=== PATIENT | female | born 1955 | race Caucasian/White ===

== ENCOUNTER → 2020-07-22 | Outpatient (CLI) | payer SELFPAY ==
[2020-07-22 13:42] LABS: ALBUMIN 4.2 g/dL (3.2-5.5); ALBUMIN/GLOBULIN RATIO 1.6 (1.0-2.2); CALCIUM 9.8 mg/dL (8.5-10.3); CREATININE 0.8 mg/dL (0.4-1.0); TOTAL PROTEIN 6.8 g/dL (6.7-8.2)
== END ==
LOC: LAB.R 08:00
PROVIDERS: ATTEND Physician Assistant Medical
DX: Z51.81 Encounter for therapeutic drug level monitoring (principal); Z79.899 Other long term (current) drug therapy
CPT/HCPCS: 36415; 80053

== ENCOUNTER 2021-05-21 07:00 | Outpatient (CLI) | payer OTHER | END 2021-05-21 23:59 | disposition home or self-care (01) | LOC: LAB.R 07:00 | PROVIDERS: ATTEND Physician Assistant Medical | DX: R30.0 Dysuria (principal) | CPT/HCPCS: 87086 ==

== ENCOUNTER 2022-04-09 08:00 | Outpatient (CLI) | payer MEDICARE, OTHER | END 2022-04-09 23:59 | disposition home or self-care (01) | LOC: LAB.S 08:00 | PROVIDERS: ATTEND Physician Assistant | DX: R10.9 Unspecified abdominal pain (principal) | CPT/HCPCS: 87086 ==

== ENCOUNTER 2022-04-09 18:34 | Emergency (ER) | payer MEDICARE, OTHER ==
--- OUTSIDE RECORDS SUMMARY | 2022-04-09 19:23 | EXTERNAL MEDICAL SUMMARY RPT | Continuity of Care Document ---
:1955 Author Organization [facility] Address [address] [place] [address] Phone Care Team Providers Name Role Phone Doug MAHMOOD Unavailable Unavailable Registrar, Kaitlin Layneborne Patient Unavailable Un available Allergies No information. Encounters No information. Medications No information. Problems date description facility 20220409 Urine C[facility] 20220409 Unspecified abdominal pain [facility] 20220409 Left flank pain [facility] 20220409 Abdominal pain, other specified site; [facility] sites [facility] Results test status date ordered by attending specimen jerzy e Urobilinogen_Presence_ unknown 20220409 unknown unknown unknown in_Urine_by_Test_strip Specific_gravity_of_Ur unknown 20220409 unknown unknown unknown ine_by_Test_strip pH_of_Urine_by_Test_st unknown 20220409 unknown unknown unknown rip Nitrite_Presence_in_Ur unknown 20220409 unknown unknown unknown ine_by_Test_strip Leukocyte_esterase_Pre unknown 20220409 unknown unknown unknown sence_in_Urine_by_Test_ strip Ketones_Mass_volume_in unknown 20220409 unknown unknown unknown _Urine_by_Test_strip Glucose_Mass_volume_in unknown 20220409 unknown unknown unknown _Urine_by_Test_strip Color_of_Urine unknown 20220409 unknown unknown unknown Bilirubin.total_Presen unknown 20220409 unknown unknown unknown ce_in_Urine_by_Test_str ip Appearance_of_Urine unknown 20220409 unknown unknown unk nown culture_status unknown 20220409 unknown unknown unknown urinalysis_routine unknown 20220409 unknown unknown unkn own appearance_urine unknown 20220409 unknown unknown unknow n leukocyte_esterase_uri unknown 20220409 unknown unknown unknown ne_by_dipstick urobilinogen_urine_sem unknown 20220409 unknown unknown unknown iquantitative_dipstick_ specific_gravity_urine unknown 20220409 unknown unknown unknown pH_urine_semiquantitat unknown 20220409 unknown unknown unknown arpit nitrite_urine_semiquan unknown 20220409 unknown unknown unknown titative ketones_urine_by_test_ unknown 20220409 unknown unknown unknown strip bilirubin_urine unknown 20220409 unknown unknown unknown urine_color unknown 20220409 unknown unknown unknown Albumin_Presence_in_Ur unknown 20220409 unknown unknown unknown ine RBC_urine_dipstick unknown 20220409 unknown unknown unkn own Erythrocytes_area_in_U unknown 20220409 unknown unknown unknown rine_sediment_by_Micros copy_high_power_field glucose_urine_semiquan unknown 20220409 unknown unknown unknown titative protein_urine_semiquan unknown 20220409 unknown unknown unknown titative_dipstick_ DIPSTICK_URINE_STRIP_L unknown 20220409 unknown unknown unknown OT_NUMBER Urobilinogen_Presence_ unknown 20220409 unknown unknown unknown in_Urine_by_Test_strip Specific_gravity_of_Ur unknown 20220409 unknown unknown unknown ine_by_Test_strip pH_of_Urine_by_Test_st unknown 20220409 unknown unknown unknown rip Nitrite_Presence_in_Ur unknown 20220409 unknown unknown unknown ine_by_Test_strip Leukocyte_esterase_Pre unknown 20220409 unknown unknown unknown sence_in_Urine_by_Test_ strip Ketones_Mass_volume_in unknown 20220409 unknown unknown unknown _Urine_by_Test_strip Glucose_Mass_volume_in unknown 20220409 unknown unknown unknown _Urine_by_Test_strip Color_of_Urine unknown 20220409 unknown unknown unknown Bilirubin.total_Presen unknown 20220409 unknown unknown unknown ce_in_Urine_by_Test_str ip Appearance_of_Urine unknown 20220409 unknown unknown unk nown culture_status unknown 20220409 unknown unknown unknown urinalysis_routine unknown 20220409 unknown unknown unkn own appearance_urine unknown 20220409 unknown unknown unknow n leukocyte_esterase_uri unknown 20220409 unknown unknown unknown ne_by_dipstick urobilinogen_urine_sem unknown 20220409 unknown unknown unknown iquantitative_dipstick_ specific_gravity_urine unknown 20220409 unknown unknown unknown pH_urine_semiquantitat unknown 20220409 unknown unknown unknown arpit nitrite_urine_semiquan unknown 20220409 unknown unknown unknown titative ketones_urine_by_test_ unknown 20220409 unknown unknown unknown strip bilirubin_urine unknown 20220409 unknown unknown unknown urine_color unknown 20220409 unknown unknown unknown Albumin_Presence_in_Ur unknown 20220409 unknown unknown unknown ine RBC_urine_dipstick unknown 20220409 unknown unknown unkn own Erythrocytes_area_in_U unknown 20220409 unknown unknown unknown rine_sediment_by_Micros copy_high_power_field glucose_urine_semiquan unknown 20220409 unknown unknown unknown titative protein_urine_semiquan unknown 20220409 unknown unknown unknown titative_dipstick_ DIPSTICK_URINE_STRIP_L unknown 20220409 unknown unknown unknown OT_NUMBER facility observation status value reference units lab abnor mal line range code notes Walk-In Urobilinogen unknown negative unknown _5818 unkn own unknown Clinic _Presence_in_ -0 Primary Urine_by_Test Care & _strip [facility] Specific_gra unknown 1.020 unknown _5811 unknow n unknown Clinic vity_of_Urine -5 Primary _by_Test_stri Care & p [facility] pH_of_Urine_ unknown 5.5 unknown _5803 unknow n unknown Clinic by_Test_strip -2 [facility] Nitrite_Pres unknown negative unknown _5802 unkn own unknown Clinic ence_in_Urine -4 Primary _by_Test_stri Care & p [facility] Leukocyte_es unknown 2+ unknown _5799 unknow n unknown Clinic terase_Presen -2 Primary ce_in_Urine_b Care & y_Test_strip [facility] Ketones_Mass unknown negative unknown _5797 unkn own unknown Clinic _volume_in_Ur -6 Primary ine_by_Test_s Care & trip [facility] Glucose_Mass unknown negative unknown _5792 unkn own unknown Clinic _volume_in_Ur -7 Primary ine_by_Test_s Care & trip [facility] Color_of_Uri unknown yellow unknown _5778 unknow n unknown Clinic ne -6 [facility] Bilirubin.to unknown negative unknown _5770 unkn own unknown Clinic tal_Presence_ -3 Primary in_Urine_by_T Care & est_strip [facility] Appearance_o unknown clear unknown _5767 unknow n unknown Clinic f_Urine -9 [facility] culture_stat unknown Yes unknown _5101 unknow n unknown Clinic us 5 [facility] urinalysis_r unknown Clean unknown _47 unknow n unknown Clinic outine Catch [facility] appearance_u unknown clear unknown _328 unknow n unknown Clinic rine [facility] leukocyte_es unknown 2+ unknown _327 unknow n unknown Clinic terase_urine_ Primary by_dipstick Care & [facility] urobilinogen unknown negative unknown _326 unkn own unknown Clinic _urine_semiqu Primary antitative_di Care & pstick_ [facility] specific_gra unknown 1.020 unknown _325 unknow n unknown Clinic vity_urine [facility] pH_urine_sem unknown 5.5 unknown _324 unknow n unknown Clinic iquantitative [facility] nitrite_urin unknown negative unknown _323 unkn own unknown Clinic e_semiquantit Primary ative [facility] ketones_urin unknown negative unknown _322 unkn own unknown Clinic e_by_test_str Primary ip [facility] bilirubin_ur unknown negative unknown _319 unkn own unknown Clinic ine [facility] urine_color unknown yellow unknown _2751 unknown unknown Clinic [facility] Albumin_Pres unknown negative unknown _1753 unkn own unknown Clinic ence_in_Urine -3 [facility] RBC_urine_di unknown 3+ unknown _1700 unknow n unknown Clinic pstick 005 [facility] Erythrocytes unknown 3+ unknown _1394 unknow n unknown Clinic _area_in_Urin 5-1 Primary e_sediment_by Care & _Microscopy_h Ancillary igh_power_fie Services ld [facility] glucose_urin unknown negative unknown _123 unkn own unknown Clinic e_semiquantit Primary ative [facility] protein_urin unknown negative unknown _118 unkn own unknown Clinic e_semiquantit Primary ative_dipstic Care & k_ [facility] DIPSTICK_URI unknown 70944 unknown _1014 unknow n unknown Clinic NE_STRIP_LOT_ 00 Primary NUMBER [facility] & [facility] Urobilinogen unknown negative unknown _5818 unkn own unknown Clinic _Presence_in_ -0 Primary Urine_by_Test Care & _strip [facility] Specific_gra unknown 1.020 unknown _5811 unknow n unknown Clinic vity_of_Urine -5 Primary _by_Test_stri Care & p [facility] pH_of_Urine_ unknown 5.5 unknown _5803 unknow n unknown Clinic by_Test_strip -2 [facility] Nitrite_Pres unknown negative unknown _5802 unkn own unknown Clinic ence_in_Urine -4 Primary _by_Test_stri Care & p [facility] Leukocyte_es unknown 2+ unknown _5799 unknow n unknown Clinic terase_Presen -2 Primary ce_in_Urine_b Care & y_Test_strip [facility] Ketones_Mass unknown negative unknown _5797 unkn own unknown Clinic _volume_in_Ur -6 Primary ine_by_Test_s Care & trip [facility] Glucose_Mass unknown negative unknown _5792 unkn own unknown Clinic _volume_in_Ur -7 Primary ine_by_Test_s Care & trip [facility] Color_of_Uri unknown yellow unknown _5778 unknow n unknown Clinic ne -6 [facility] Bilirubin.to unknown negative unknown _5770 unkn own unknown Clinic tal_Presence_ -3 Primary in_Urine_by_T Care & est_strip [facility] Appearance_o unknown clear unknown _5767 unknow n unknown Clinic f_Urine -9 [facility] culture_stat unknown Yes unknown _5101 unknow n unknown Clinic us 5 [facility] urinalysis_r unknown Clean unknown _47 unknow n unknown Clinic outine Catch [facility] appearance_u unknown clear unknown _328 unknow n unknown Clinic rine [facility] leukocyte_es unknown 2+ unknown _327 unknow n unknown Clinic terase_urine_ Primary by_dipstick Care & [facility] urobilinogen unknown negative unknown _326 unkn own unknown Clinic _urine_semiqu Primary antitative_di Care & pstick_ Anc[facility] specific_gra unknown 1.020 unknown _325 unknow n unknown Clinic vity_urine [facility] pH_urine_sem unknown 5.5 unknown _324 unknow n unknown Clinic iquantitative [facility] nitrite_urin unknown negative unknown _323 unkn own unknown Clinic e_semiquantit Primary ative [facility] ketones_urin unknown negative unknown _322 unkn own unknown Clinic e_by_test_str Primary ip [facility] bilirubin_ur unknown negative unknown _319 unkn own unknown Clinic ine [facility] urine_color unknown yellow unknown _2751 unknown unknown Clinic [facility] Albumin_Pres unknown negative unknown _1753 unkn own unknown Clinic ence_in_Urine -3 [facility] RBC_urine_di unknown 3+ unknown _1700 unknow n unknown Clinic pstick 005 [facility] Erythrocytes unknown 3+ unknown _1394 unknow n unknown Clinic _area_in_Urin 5-1 Primary e_sediment_by Care & _Microscopy_h Ancillary igh_power_fie Services ld [facility] glucose_urin unknown negative unknown _123 unkn own unknown Clinic e_semiquantit Primary ative [facility] & [facility] protein_urin unknown negative unknown _118 unkn own unknown Clinic e_semiquantit Primary ative_dipstic Care & k_ [facility] DIPSTICK_URI unknown 95435 unknown _1014 unknow n unknown Clinic NE_STRIP_LOT_ 00 Primary NUMBER [facility] & [facility] Vital Signs date measurement value source 20220409 weight_standard 176 lb 20220409 weight_metric 79.83 kg 20220409 temperature_standard 98.5 F 20220409 temperature_metric 36.94 C 20220409 respiration_rate 15 /min 20220409 height_standard 65 in 20220409 height_metric 165.1 cm 20220409 heart_rate 86 /min 20220409 BP_systolic 144 mm[Hg] 20220409 BP_diastolic 96 mm[Hg] 20220409 BMI 29.39 kg/m2 20220409 weight_standard 176 lb 20220409 weight_metric 79.83 kg 20220409 temperature_standard 98.5 F 20220409 temperature_metric 36.94 C 20220409 respiration_rate 15 /min 20220409 height_standard 65 in 20220409 height_metric 165.1 cm 20220409 heart_rate 86 /min 20220409 BP_systolic 144 mm[Hg] 20220409 BP_diastolic 96 mm[Hg] 20220409 BMI 29.39 kg/m2
--- NOTE | 2022-04-09 19:34 | ED Physician Documentation ---
History of Present Illness - Stated complaint Stated Complaint: BACK PX/BLOOD IN URINE - Chief complaint Chief Complaint: Back Pain - History obtained from History obtained from: Patient - Additonal information Additional information: 30 years ago she had a complete right nephrectomy for multicystic kidney disease. Kidney function is always been normal ever since. Last 10 days she has developed left flank pain which has become pretty bad today. She went to urgent care and they noted hematuria and was sent here for further evaluation. She declines pain medicine on initial evaluation. No fevers. 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 - Present Medications Home Medications: Ambulatory Orders Medication Instructions Recorded Confirmed Cyclobenzaprine [Flexeril] 10 mg PO TID PRN 04/09/22 04/09/22 Oxybutynin [Ditropan] 5 mg PO DAILY 04/09/22 04/09/22 Simvastatin [Zocor] 10 mg PO DAILY 04/09/22 04/09/22 - Allergies Allergies/Adverse Reactions: Allergies Allergy/AdvReac Type Severity Reaction Status Date / Time codeine Allergy Nausea Verified 04/09/22 18:47 - Social History Does the pt smoke?: No Smoking Status: Never smoker Does the pt drink ETOH?: Yes Does the pt have substance abuse?: No - Immunizations Immunizations are current?: Yes PD ED PE NORMAL - Vitals Vital signs reviewed: Yes - General General: Alert and oriented X 3, No acute distress - Abdomen Abdomen: Normal bowel sounds, Soft, Non tender - Back Back: No CVA TTP, No spinal TTP - Derm Derm: Normal color, Warm and dry - Extremities Extremities: No edema, No calf tenderness / cord - Neuro Neuro: Alert and oriented X 3, Normal speech Results - Vitals Vitals: Vital Signs - 24 hr 04/09/22 04/09/22 18:41 20:04 Temperature 36.7 C Heart Rate 82 Respiratory 14 16 Rate Blood Pressure 130/85 H O2 Saturation 98 Oxygen O2 Source Room air - Labs Labs: Laboratory Tests 04/09/22 04/09/22 04/09/22 19:25 19:46 19:46 WBC 8.6 RBC 5.12 Hgb 15.1 Hct 45.1 MCV 88.1 MCH 29.5 MCHC 33.5 RDW 12.4 Plt Count 307 MPV 9.8 Neut # (Auto) 5.5 Lymph # (Auto) 2.2 [place] # (Auto) 0.7 Eos # (Auto) 0.1 Baso # (Auto) 0.0 Absolute Nucleated RBC 0.00 Nucleated RBC % 0.0 Sodium 138 Potassium 4.0 Chloride 103 Carbon Dioxide 24 Anion Gap 11.0 BUN 25 H Creatinine 0.8 Estimated GFR (MDRD) 72 L Glucose 109 H Calcium 9.5 Total Bilirubin 0.8 AST 22 ALT 18 Alkaline Phosphatase 54 Total Protein 7.5 Albumin 4.4 Globulin 3.1 Albumin/Globulin Ratio 1.4 Urine Color YELLOW Urine Clarity CLEAR Urine pH 5.5 Ur Specific Rowe >=1.030 H Urine Protein NEGATIVE Urine Glucose (UA) NEGATIVE Urine Ketones NEGATIVE Urine Occult Blood MODERATE H Urine Nitrite NEGATIVE Urine Bilirubin NEGATIVE Urine Urobilinogen 0.2 (NORMAL) Ur Leukocyte Esterase NEGATIVE Urine RBC 6-10 H Urine WBC 4-5 Ur Squamous Epith Cells FEW Squamous Urine Bacteria Rare Ur Microscopic Review INDICATED Urine Culture Comments NOT INDICATED PD MEDICAL DECISION MAKING - ED course ED course: 67-year-old woman with single kidney status presents with left flank pain on the side of her remaining kidney. She has small hematuria and 2 nonobstructing but fairly large stones in the renal pelvis. Required no pain medication here. Given a CD of the CAT scan to aid in follow-up and discussed need for close follow-up. Departure - Departure Disposition: 01 Home, Self Care Clinical Impression: Nephrolithiasis Condition: Good Record reviewed to determine appropriate education?: Yes Instructions: ED Stone Kidney Undescended No Sx Comments: As discussed, you have 2 fairly large kidney stones in your remaining kidney. Thankfully they are not obstructing and therefore do not need to be urgently evaluated but I would call your primary care physician tomorrow for consideration for referral to a urologist given your single kidney status. Return if pain is severe or other new or worrisome symptoms pop up.
[2022-04-09 19:41] LABS: BILIRUBIN,URINE NEGATIVE (NEGATIVE); GLUCOSE, URINE (UA) NEGATIVE (NEGATIVE); KETONES,URINE (UA) NEGATIVE (NEGATIVE); LEUKOCYTE ESTERASE, URINE NEGATIVE (NEGATIVE); NITRITE,URINE NEGATIVE (NEGATIVE); OCCULT BLOOD,URINE MODERATE (NEGATIVE); PH,URINE 5.5 PH (5.0-7.5); PROTEIN,URINE NEGATIVE (NEGATIVE); UROBILINOGEN,URINE 0.2 (NORMAL) E.U./dL (NORMAL)
[2022-04-09 19:46] LABS: CLARITY,URINE CLEAR (CLEAR)
[2022-04-09 19:57] LABS: BACTERIA,URINE Rare /HPF (None Seen); SQUAMOUS EPITHELIAL CELL,UR FEW Squamous (<= Few)
[2022-04-09 19:58] LABS: BASOPHILS % (AUTO) 0.2 %; EOSINOPHILS # (AUTO) 0.1 10^3/uL (0.0-0.7); EOSINOPHILS % (AUTO) 1.3 %; HCT - HEMATOCRIT 45.1 % (37.0-47.0); HGB - HEMOGLOBIN 15.1 g/dL (12.0-16.0); LYMPHOCYTES # (AUTO) 2.2 10^3/uL (1.5-3.5); LYMPHOCYTES % (AUTO) 25.8 %; MEAN CORPUSCULAR HEMOGLOBIN 29.5 pg (27.0-31.0); MEAN CORPUSCULAR HGB CONC 33.5 g/dL (32.0-36.0); MEAN CORPUSCULAR VOLUME 88.1 fL (81.0-99.0); MEAN PLATELET VOLUME 9.8 fL (7.9-10.8); MONOCYTES # (AUTO) 0.7 10^3/uL (0.0-1.0); MONOCYTES % (AUTO) 8.5 %; NEUTROPHILS # (AUTO) 5.5 10^3/uL (1.5-6.6); PLT - PLATELET COUNT 307 10^3/uL (130-450); RED BLOOD COUNT 5.12 10^6/uL (4.20-5.40); RED CELL DISTRIBUTION WIDTH 12.4 % (12.0-15.0); WHITE BLOOD COUNT 8.6 x10^3/uL (4.8-10.8)
[2022-04-09 20:03] LABS: ALBUMIN 4.4 g/dL (3.2-5.5); ALBUMIN/GLOBULIN RATIO 1.4 (1.0-2.2); BILIRUBIN,TOTAL 0.8 mg/dL (0.2-1.0); CALCIUM 9.5 mg/dL (8.5-10.3); CREATININE 0.8 mg/dL (0.4-1.0); TOTAL PROTEIN 7.5 g/dL (6.7-8.2)
--- NOTE | 2022-04-09 20:23 | CT Report ---
PROCEDURE: Abdomen/Pelvis WO INDICATIONS: L flank pain TECHNIQUE: Noncontrast 5 mm thick sections acquired from the diaphragms to the symphysis. 5 mm coronal and sagi ttal reformats were then performed. For radiation dose reduction, the following was used: automated exposure control, adjustment of mA and/or kV according to patient size. COMPARISON: None. FINDINGS: Image quality: Excellent. ABDOMEN: Lung bases: Lung bases are clear. Heart size is normal. Small hiatal hernia. Solid organs: Liver and spleen are normal in size. Gallbladder is contracted, within normal limits. Pancreas is normal in contours. No adrenal nodules. The left kidney contains 2 relatively large re nal stones, measuring 8 mm and 9 mm respectively. One of these stones has a Hounsfield measurement of 493 and the other has a Hounsfield measurement of 351. The right kidney is surgically absent. Multip le left peripelvic cysts. There does not appear to be significant hydronephrosis present. The ureter is not dilated. Peritoneum and bowel: Unenhanced bowel loops demonstrate normal wall thickness and caliber. No free fluid or air. Nodes and vessels: No retroperitoneal or mesenteric adenopathy by size criteria. Aorta and inferior vena cava are normal in caliber. Miscellaneous: No ventral hernias. PELVIS: Genitourinary: Bladder wall thickness is normal. Miscellaneous: No inguinal hernias or adenopathy. Bones: Extensive lower lumbar degenerative change. Anterolisthesis of L5 on S1. Anterolisthesis of L4 on L5. Lower lumbar facet arthropathy. A sclerotic area in the L3 vertebra most likely represents a bone island. IMPRESSION: 1. Remote right nephrectomy. 2. There are 2 relatively large nonobstructing left renal stones. Structures in the left renal pelvis are felt to represent peripelvic cysts and not hydronephrosis. 3. No evidence of acute abdominal process. 4. Extensive lumbar degenerative change. 5. Probable L3 bone island. Reviewed by: Julio Cesar Hicks MD on 04/09/2022 8:21 PM PDT Approved by: Julio Cesar Hicks MD on 04/09/2022 8:21 PM PDT Station ID: [id number]
[2022-04-09 20:51] VITALS: BP 131/79
== END 2022-04-09 21:18 | disposition home or self-care (01) ==
LOC: ED 18:34
DX: N20.0 Calculus of kidney (principal); R10.9 Unspecified abdominal pain
CPT/HCPCS: 36415; 80053; 81001; 81003; 85025; 87086; 99283; 99284

== ENCOUNTER 2023-08-07 20:47 | Emergency (ER) | payer MEDICARE, OTHER ==
[2023-08-07 21:08] VITALS: BP 133/69; O2SAT 96
[2023-08-07] MEDS ORDERED: AMOX/CLAV 500 MG/125 MG TABLET PO STA (23:01)
[2023-08-07] MEDS ORDERED: KETOROLAC 10 MG TABLET PO STA (23:04)
--- NOTE | 2023-08-07 23:04 | ED Physician Documentation ---
PD HPI OPHTHO - Stated complaint Stated Complaint: LT EYE PX - Chief complaint Chief Complaint: Heent - History obtained from History obtained from: Patient - Additional information Additional information: 68yF presents to the ED with pain and irritation to the skin under her left eye starting today, along with some mild swelling. denies pain with EOM. denies vision changes. 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 - Present Medications Home Medications: Ambulatory Orders Medication Instructions Recorded Confirmed Cyclobenzaprine [Flexeril] 10 mg PO TID PRN 04/09/22 04/09/22 Oxybutynin [Ditropan] 5 mg PO DAILY 04/09/22 04/09/22 Simvastatin [Zocor] 10 mg PO DAILY 04/09/22 04/09/22 Amox/Clav 500/125 [Augmentin 1 tablet PO Q12H #10 tablet 08/07/23 500/125] - Allergies Allergies/Adverse Reactions: Allergies Allergy/AdvReac Type Severity Reaction Status Date / Time codeine Allergy Nausea Verified 08/07/23 21:08 - Social History Does the pt smoke?: No Smoking Status: Never smoker Does the pt drink ETOH?: Yes Does the pt have substance abuse?: No - Immunizations Immunizations are current?: Yes - POLST Patient has POLST: No PD ED PE NORMAL - Vitals Vital signs reviewed: Yes - General General: Alert and oriented X 3, No acute distress, Well developed/nourished - HEENT HEENT: Atraumatic, PERRL, EOMI - Derm Derm: Other (mild erythema and swelling to skin inferior to L eye just lateral to nasal bridge. discomfort to palpation. soft to touch without fluctuance or induration) Results - Vitals Vitals: Vital Signs - 24 hr 08/07/23 21:00 Temperature 36.9 C Heart Rate 95 Respiratory 18 Rate Blood Pressure 133/69 H O2 Saturation 96 Oxygen O2 Source Room air PD Medical Decision Making - ED course ED course: 68-year-old woman presents to the ED with erythema and swelling to area under left eye without known cause. She does have some baseline nearsightedness in the left eye but states that she does not believe she is having any vision changes. Doubt orbital cellulitis given no pain with extraocular movements. Dacryocystitis is a possibility but this is a very mild case if that is so because there is mild to minimal swelling. We will treat as early simple skin cellulitis with antibiotics. Advised patient to follow-up with primary care provider. Return precautions given. Departure - Departure Disposition: Home, Self Care Clinical Impression: Cellulitis Condition: Good Instructions: Cellulitis Dc Prescriptions: Amox/Clav 500/125 [Augmentin 500/125] 1 tablet PO Q12H #10 tablet Comments: You were seen in the emergency department for cellulitis (skin infection under the eye). Antibiotics were sent electronically to [facility] in [place]. Please follow-up with your primary care provider and return to the emergency department if you have any new or worsening symptoms or other concerns. Forms: PCP List
== END 2023-08-07 23:21 | disposition home or self-care (01) ==
LOC: ED 20:47
DX: H00.035 Abscess of left lower eyelid (principal)
CPT/HCPCS: 99282; 99283; A9270